=== PATIENT | male | born 1980 | race Two or more races ===

== ENCOUNTER 2023-09-29 17:30 | Emergency (ER) | payer OTHER, SELFPAY ==
[2023-09-29 17:37] VITALS: BP 160/88; PULSE 76; O2SAT 98
[2023-09-29 17:43] VITALS: BP 117/63; PULSE 84; RESP 16; TEMP 36.9; O2SAT 100; BMI 28.4
--- NOTE | 2023-09-29 18:22 | ED_ITS ---
HPI - Extremity Injury (Lower) General Chief Complaint: Extremity Injury, Lower Stated Complaint: L ankle injury, hyperextension Time Seen by Provider: 09/29/23 17:38 Source: patient, EMS and RN notes reviewed Mode of arrival: EMS Limitations: no limitations History of Present Illness HPI Narrative: Patient is a 43-year-old male presenting to the emergency department with complaint of sudden onset left posterior ankle pain. Patient was playing volleyball and while jumping, felt a popping sensation and when landed was unable to stand/bear weight on left leg. Reports pain to achillles at this time. Denies any numbness or tingling. Denies taking any [id number] pain medication prior to arrival. MD complaint: ankle injury Onset (ago): minute(s) Place: other Severity: severe Exacerbating factors: movement and palpation Context: jumping Associated symptoms: snap/pop sensation Other symptoms: none Treatments prior to arrival: cold therapy Related Data Allergies Allergy/AdvReac Type Severity Reaction Status Date / Time No Known Allergies Allergy Verified 09/29/23 18:15 Review of Systems Review of Systems: As per HPI. Yes all other systems are reviewed and are negative Constitutional: Constitutional: Reports as per HPI [facility] Social History Social History Advance Directives: No Advance Directives Information Provided: No Physical Exam Vital Signs: Vital Signs: Last Vital Signs Temp 98.5 F 09/29/23 17:43 Pulse 84 09/29/23 17:43 Resp 16 09/29/23 17:43 BP 117/63 09/29/23 17:43 Pulse Ox 100 09/29/23 17:43 O2 Del Method Room Air 09/29/23 17:43 BMI result Body Mass Index 28.4 Vital signs have been reviewed and appear to be correct. Blood pressure normal. Heart rate normal. Respiratory rate normal. Temperature normal. Oxygen saturation normal. Const: General: cooperative, healthy appearing and no acute distress Orientation/consciousness: oriented to person, oriented to place, oriented to time and patient oriented x3 Limitations: no limitations HEENT: Head: Yes normocephalic and Yes atraumatic Ears: external ears normal General nose exam: Normal external nose present Face and sinus: Yes face symmetric Mouth: oropharynx normal and moist mucous membranes Throat: Yes uvula midline Eyes: Pupils: Equal, round and reactive pupils present Neck: Neck: Yes normal visual inspection and Yes supple Resp: Effort & Inspection: normal respiratory effort and able to speak in complete sentences Auscultation: clear to auscultation bilaterally Cardio: Rate: regular rate Rhythm: regular rhythm Heart sounds: S1 normal heart sound present and S2 normal heart sound present GI: Palpation (GI): Soft to palpation and nontender Auscultation: normoactive bowel sounds : General: Yes no CVA tenderness Back/Spine/Pelvis: Back: no CVA tenderness Skin: General skin exam: elasticity normal and turgor normal Neuro: General: oriented to person, oriented to place, oriented to time, patient oriented x3, moves all extremities, no focal motor deficits and CN's II- XI intact bilaterally Cranial nerves: Yes Equal, round and reactive pupils present Cognition (Neuro): normal cognition Extrem: General: Yes full ROM, Yes no pedal edema and Yes no calf tenderness Right lower extremity: normal to inspection, full ROM and normal capillary refill Left lower extremity: ankle Details: tenderness Location: of the achilles tendon, swelling Details: posteriorly and achilles tendon exam abnormal Details: tenderness to palpation and Barnett Test abnormal; no ecchymosis and foot Details: vascular exam Details: dorsalis pedis pulse present and posterior tibial pulse present Psych: Mental Status: mental status grossly normal Affect: normal affect Thought process: Normal thought process present Medications Administered Discontinued Medications Generic Name Dose Route Start Last Admin Trade Name Bertha PRN Reason Stop Dose Admin Acetaminophen 975 mg 09/29/23 18:23 09/29/23 18:29 Acetaminophen 325 Mg Tablet PO 09/29/23 18:24 975 mg ONCE ONE Administration Ibuprofen 600 mg 09/29/23 18:23 09/29/23 18:29 Ibuprofen 600 Mg Tablet PO 09/29/23 18:24 600 mg ONCE ONE Administration Oxycodone HCl 5 mg 09/29/23 18:15 09/29/23 18:30 Oxycodone Hcl Immed Release 5 Mg Tablet PO 09/29/23 18:16 Not Given ONCE ONE Medical Decision Making Medical Decision Making [facility] Narrative: Patient is a 43-year-old male presenting to the emergency department with comp laint of sudden onset left posterior ankle pain. On exam patient is awake, A+Ox3, VS WNL, afebrile, normal neurological exam without focal deficits, physical exam findings as above. Given reported symptoms and physical exam findings, initial differential includes Achilles tendon tear, Achilles tendonitis, bursitis. Physical exam findings consistent with Achilles tendon tear. Patient medicated for pain, patient declined oxycodone, patient medicated with Tylenol and ibuprofen. Patient placed in walking boot and provided with crutches in crutch teaching. Will refer patient to Orthopedics for further management. Dr. Harrington notified that patient will be following up. Discussed with patient that he should be nonweightbearing on left leg until seen by orthopedics. Advised Tylenol and ibuprofen for discomfort, ice, elevation. Return precautions discussed with patient. Patient verbalized understanding of and agreement with plan. Differential Diagnosis Differential Diagnoses: The differential diagnosis associated with the presentation includes As per MDM. External Record Review External record reviewed: Inpatient record, Office record and Outpatient record Prescription Management I considered prescription management with: Pain Medication Discharge Plan Discharge Clinical Impression: Achilles tendon tear Qualifiers: Encounter type: initial encounter Laterality: left Qualified Code(s): S86.012A - Strain of left Achilles tendon, initial encounter Patient Disposition: Home, Self-Care Instructions: Crutch Instructions (ED), Achilles Tendon Rupture (ED), R.I.C.E. Treatment (ED) Additional Instructions: You have been evaluated in the emergency department today for left achilles pain. Your evaluation is consistent with an Achilles tendon tear. You were placed in a walking boot in the emergency department today. We have provided crutches for you to use as you should not bear any weight on your left foot until seen by orthopedics. Please rest, ice, and elevate your ankle, and resume normal activities as tolerated. We recommend you take 600mg ibuprofen every 6 hours or 650mg Tylenol every 6 hours as needed for pain. If needed you can alternate these medications as they take 1 medication every 3 hours. For instance at noon take ibuprofen, then at 3:00 p.m. take Tylenol, then at 6:00 p.m. take ibuprofen. You are being referred to Orthopedics for further management of this injury. Please call their office tomorrow to schedule an appointment. Please schedule an appointment for follow-up with your primary care provider this week as well. Return to the emergency department if you experience worsening pain, numbness, tingling, change of color in your foot, or any other concerning symptoms. Referrals: [facility] [Provider Group] Stand Alone Forms: Work/School Release
[2023-09-29] MEDS: Acetaminophen 325 MG TABLET 975 MG PO (18:29)
[2023-09-29] MEDS: Ibuprofen 600 MG TABLET PO (18:29)
[2023-09-29 18:52] VITALS: BP 148/81; PULSE 76; RESP 19; TEMP 36.8; O2SAT 98
== END 2023-09-29 19:07 | disposition home or self-care (01) ==
PROVIDERS: Emergency Provider Emergency Medicine
DX: S86.012A Strain of left Achilles tendon, initial encounter (principal); M79.605 Pain in left leg; Y93.68 Activity, volleyball (beach) (court); Y92.318 Other athletic court as the place of occurrence of the external cause; Y99.8 Other external cause status
CPT/HCPCS: 99283; 99284

== ENCOUNTER 2023-10-03 09:55 | Outpatient (AMB) | payer OTHER, SELFPAY ==
--- NOTE | 2023-10-03 10:00 | A.OFFVIS_ITS ---
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 Patient states he was playing volleyball and while jumping, felt a popping sensation, landed and was unable to stand/bear weight on left leg. Reports pain to achillles at this time. Denies any numbness or tingling. Seen in ED where he he was told this might be an achilles tendon tear. Patient was given a boot and crutches. Currently states he cont's to have pain, swelling and bruising. Denies nymbness or tingling. 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 He was seen at ED for his pain where he was placed in a boot and crutches were given. He currently states he has pain, swelling and bruising in his left foot. He denies any numbness or tingling. 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 [facility] Medical History (Updated 10/03/23 @ 11:25 by Chilango Gil PA-C) High blood pressure Surgical History (Updated 10/03/23 @ 11:24 by Chilango Gil PA-C) History of ankle surgery Social History (Updated 10/03/23 @ 10:12 by MARCE Tay) Current occupational status: employed Current occupation: active duty / rt hand Review of Systems Const All systems reviewed & are unremarkable except as noted in HPI and below Physical Exam Vital Signs: BMI result Body Mass Index 28.4 Const General: cooperative, healthy appearing, comfortable, no acute distress, well developed and alert Orientation/consciousness: patient oriented x3 HEENT Head: Yes normal to inspection, Yes normocephalic and Yes atraumatic Eyes General: appearance normal, both eyes and all related structures Neck Neck: Yes normal visual inspection and Yes no lymphadenopathy Resp Effort & Inspection: normal respiratory effort and able to speak in complete sentences Cardio Rate: regular rate Peripheral pulses: Peripheral pulses 2+ throughout GI Inspection: Yes normal to inspection Palpation (GI): Soft to palpation Skin General skin exam: no rashes or lesions noted Lesions: no lesions Rashes: no rashes Neuro General: patient oriented x3 Extrem Other: Left ankle: Normal to inspection, diffuse swelling throughout the ankle and up into the region of the Achilles. He does have tenderness with a palpable defect along the Achilles tendon with a positive Barnett?s sign. NVI. Psych Appearance: grossly normal Mental Status: mental status grossly normal Assessment & Plan Assessment & Plan (1) Rupture of left Achilles tendon: Code(s): S86.012A - Strain of left Achilles tendon, initial encounter Qualifiers: Encounter type: initial encounter Qualified Code(s): S86.012A - Strain of left Achilles tendon, initial encounter Plan I reviewed the case with Dr. Nicole and this is something that would require surgical intervention to repair. I explained the extent of the injury and option s to the patient which includes repair of the Achilles tendon. I did explain to her that this takes anywhere from 6-12 weeks to fully recover from as there needs to be a period of immobilization and then some potential physical therapy. I discussed with him the risks, benefits and alternatives to the procedure. Risks including, but not limited to infection, re-rupture of the tendon, stiffness. He does understand all this and would like to proceed with left Achilles tendon repair with Dr. Nicole. He will be booked accordingly. Medications: New ibuprofen 800 mg PO Q8H PRN 90 tabs 3RF pain 30 days S52.209D - Unspecified fracture of shaft of unspecified ulna, subsequent encounter for closed fracture with routine healing acetaminophen 650 mg (2 x 325 mg) PO Q4-6H PRN 240 tabs 0RF fever or pain 30 days Patient Instructions: Scribed for Chilango Gil PA-C, by Prabhu Mckeon medical records clerk, on 10/03/2023 at 9:30 AM JORGITO. Chilango Gutierrez PA-C, have personally reviewed and agree with the information entered by the scribe. Coding Level of Care Code New Pt Level 4 (42256) Diagnoses Rupture of left Achilles tendon, initial encounter S86.012A Encounter type: initial encounter
[2023-10-03 10:02] VITALS: BMI 28.4
== END 2023-10-03 10:56 | disposition home or self-care (01) ==
PROVIDERS: Visit Provider Physician Assistant
DX: S86.012A Strain of left Achilles tendon, initial encounter (principal)
CPT/HCPCS: 99204

== ENCOUNTER → 2023-10-03 09:55 | Outpatient (BNVA) | payer OTHER, SELFPAY | PROVIDERS: Visit Provider Physician Assistant | DX: S86.012A Strain of left Achilles tendon, initial encounter (principal) | CPT/HCPCS: 99202 ==

== ENCOUNTER 2023-10-05 10:31 | Day surgery (SDC) | payer OTHER, SELFPAY ==
--- NOTE | 2023-10-04 09:15 | HO.ANESPROP2 ---
Documented by User: Katrhyn Witt NP 10/04/23 09:15 HPI - Anesthesia Eval Consult details Narrative: 43yo M for Left Achilles Tendon Repair PMFSH Active Problems Active Problems: All Active Problems (Updated 10/03/23 @ 11:25 by Chilango Gil PA-C) Rupture of left Achilles tendon (Acute) Past Medical History Medical History Sleep apnea High blood pressure Surgical History Surgical History History of foot surgery History of ankle surgery Social History Social History Patient Tobacco Use Status: Never used Tobacco Use of substances other than those prescribed or required for medical reasons: No Are you DNR?: No Advance Directives: No Advance Directives Information Provided: Yes Current occupational status: employed Current occupation: active duty / rt hand Meds Allergies Allergy/AdvReac Type Severity Reaction Status Date / Time No Known Allergies Allergy Verified 10/03/23 10:03 Home Medications Medication Instructions Recorded Confirmed Last Taken Type amlodipine 5 mg tablet 5 mg PO DAILY 10/03/23 10/05/23 10/05/23 History lisinopril 2.5 mg tablet 2.5 mg PO DAILY 10/03/23 10/05/23 10/05/23 History Assessment and Plan Assessment Anesthesia Assessment: Chart Reviewed Documented by User: Eliana Briscoe MD 10/05/23 12:30 PMFSH Past Medical History Medical History Sleep apnea High blood pressure Family History Family history of problems with anesthesia: No Surgical History Surgical History History of foot surgery History of ankle surgery History of Problems with Anesthesia: No Social History Social History Patient Tobacco Use Status: Never used Tobacco Use of substances other than those prescribed or required for medical reasons: No Are you DNR?: No Advance Directives: No Advance Directives Information Provided: Yes Current occupational status: employed Current occupation: active duty / rt hand Meds Allergies Allergy/AdvReac Type Severity Reaction Status Date / Time No Known Allergies Allergy Verified 10/03/23 10:03 Home Medications Medication Instructions Recorded Confirmed Last Taken Type amlodipine 5 mg tablet 5 mg PO DAILY 10/03/23 10/05/23 10/05/23 History lisinopril 2.5 mg tablet 2.5 mg PO DAILY 10/03/23 10/05/23 10/05/23 History Exam Airway Mallampati Class: II TM Dist: >3cm Neck ROM: Full Heart: rrr Lungs: cta Assessment and Plan Assessment Anesthesia Assessment: Anesthesia Plan Discussed Final Anesthetic Review Family History of Problems with Anesthesia: No History of Problems with Anesthesia: No NPO: Yes ASA Class: III Final Preanesthetic Review: No Changes in Pt Med Stat, Meds/Allgs Chart Reviewed, Consent Obtained/Reviewed and Anes Risks/Benef Reviewed Patient Risk: Intermediate Procedure Risk: Intermediate Anesthetic Plan Anesthetic Plan: GA and Regional Block Disposition: Standard PACU
[2023-10-05 12:11] VITALS: BMI 26.0
[2023-10-05 12:23] VITALS: BP 142/95; PULSE 70; RESP 16; TEMP 36.8; O2SAT 99
[2023-10-05] MEDS: Lactated Ringers 1,000 ML 100 ML IVCONT (12:39)
--- NOTE | 2023-10-05 15:48 | PM.OP ---
Brief Operative Note Date of Service: 10/05/23 Pre-op diagnosis: Left achilles tendon rupture Post-op diagnosis: same Procedure: Left achilles tendon repair Implants: none Surgeon: Faustino Nicole MD Anesthesia: GETA and regional Was an Piano And Organ Refinisher used for this Procedure?: Yes Piano And Organ Refinisher: April Wilson Estimated blood loss (mL): 25 IV fluids (mL): 800 Pathology: none sent Condition: stable Disposition: PACU
[2023-10-05 15:54] VITALS: BP 151/77; PULSE 90; RESP 18; TEMP 36.6; O2SAT 100
[2023-10-05 15:59] VITALS: BP 143/79; PULSE 86; RESP 20; O2SAT 98
[2023-10-05 16:04] VITALS: BP 146/79; BP 148/72; PULSE 83; PULSE 96; RESP 20; O2SAT 96; O2SAT 98
[2023-10-05 16:19] VITALS: BP 145/88; PULSE 76; RESP 20; O2SAT 99
[2023-10-05 16:34] VITALS: BP 149/78; PULSE 76; RESP 20; TEMP 36.2; O2SAT 99
--- NOTE | 2023-10-10 08:38 | W.PM.OPN ---
Operative Note Operative Note Date of Service: 10/05/23 Narrative: Date of Service: 10/05/23 Pre-op diagnosis: Left achilles tendon rupture Post-op diagnosis: same Procedure: Left achilles tendon repair Implants: none Surgeon: Faustino Nicole MD Anesthesia: GETA and regional Was an Overlock Sewing Machine Operator used for this Procedure?: Yes Overlock Sewing Machine Operator: April Wilson Estimated blood loss (mL): 25 IV fluids (mL): 800 Pathology: none sent Condition: stable Disposition: PACU Patient was brought to the operating room and placed prone on the surgical table. He was prepped and draped in standard sterile fashion and a time out was called to identify proper site, proper procedure and IV antibiotics per weight were administered. I began by making a 2 cm incision over the distal Achilles tendon. Once through skin was immediately obvious that he had a full-thickness tear of his Achilles tendon. The distal end contained most of the tendon and a portion had occurrred at the tendon-muscle interface. I extended the incision 1.5 cm proximally to better visualize the torn portions of the tendon. There was a portion of the proximal tendon that I was able to grab with a Shivani clamp. I debrided the tissue and then, using a #2 FiberWire and a Krackow stitch in both the distal and proximal fragment reapproximated to tendon fragments with the foot and hyper plantar flexion. The repair was stable as I took the ankle through full ROM. The proximal portion of the tear did occur through the muscle-tendon interface and so the repair was tenous at the proximal aspect. Absorbalbe suture and skin glue were used and a well-padded posterior splint was applied with the plan plantar flexion. Patient was then extubated brought to recovery room stable condition. There were no known complications.
== END 2023-10-05 17:15 | disposition home or self-care (01) ==
LOC: HO.SSS 10:33
PROVIDERS: Visit Provider Orthopaedic Surgery
PROC: (CPT 27650; principal; 2023-10-05 13:40)
DX: S86.012A Strain of left Achilles tendon, initial encounter (principal); M25.572 Pain in left ankle and joints of left foot; X58.XXXA Exposure to other specified factors, initial encounter; Y93.68 Activity, volleyball (beach) (court); Y92.9 Unspecified place or not applicable; Y99.8 Other external cause status; I10 Essential (primary) hypertension; G47.33 Obstructive sleep apnea (adult) (pediatric); Z79.899 Other long term (current) drug therapy; Z98.890 Other specified postprocedural states
CPT/HCPCS: 27650; J0131; J0665; J0690; J2250; J2405; J2704; J3010

== ENCOUNTER → 2023-10-05 10:31 | Outpatient (BNV) | payer OTHER, SELFPAY | PROVIDERS: Visit Provider Orthopaedic Surgery | DX: S86.012A Strain of left Achilles tendon, initial encounter (principal) | CPT/HCPCS: 27650 ==

== ENCOUNTER 2023-10-13 10:11 | Outpatient (AMB) | payer OTHER, SELFPAY ==
--- NOTE | 2023-10-13 10:51 | A.OFFVIS_ITS ---
Intake Intake Visit Reasons: PO LT achilles tendone repair 10/05/23 NE Intake Note: Roberto is a 43 year old male who presents today for a post op appointment s/p LT achilles tendon repair 10/05/23 NE. Patient reports having some discomfort. Denies numbness and tingling. Allergies hydrocodone Adverse Reaction (Verified 10/05/23 12:43) Agitated oxycodone Adverse Reaction (Verified 10/05/23 12:43) Agitated HPI PO LT achilles tendone repair 10/05/23 NE HPI Details 43-year-old male who presents in the off ice today 8 days status post left achilles tendon repair, which was performed on 10/05/[address] Nicole. The patient reports having some discomfort. He denies numbness or tingling. The patient presented to the office today with a knee scooter and it started to tip over causing him to put weight on the left lower extremity where he reports he had significant increase in pain. REPLACED BY [facility] Medical History Sleep apnea High blood pressure Surgical History History of foot surgery History of ankle surgery Social History Patient Tobacco Use Status: Never used Tobacco Current occupational status: employed Current occupation: active duty / rt hand Review of Systems Const All systems reviewed & are unremarkable except as noted in HPI and below Physical Exam Const General: cooperative, healthy appearing and no acute distress Resp Effort & Inspection: normal respiratory effort and able to speak in complete sentences Cardio Rate: regular rate Peripheral pulses: Peripheral pulses 2+ throughout GI Palpation (GI): Soft to palpation Skin Lesions: no lesions Rashes: no rashes Extrem Other: Left achilles: Normal to inspection. NO ecchymosis, erythema, or edema. No signs of infection. Sensation intact. Pedal pulse intact. Office Procedures Casting/Splints 60086-[id number] Leg Cast Application Procedure code (CPT) selection complete Assessment & Plan Assessment & Plan (1) Rupture of left Achilles tendon: Code(s): S86.012A - Strain of left Achilles tendon, initial encounter Qualifiers: Encounter type: initial encounter Qualified Code(s): S86.012A - Strain of left Achilles tendon, initial encounter Plan Mr. Lawson is a 43-year-old male who presents in the office today 8 days status post left achilles tendon repair, which was performed on 10/05/[address] Nicole. The patient reports having some discomfort. He denies numbness or tingling. The patient presented to the office today with a knee scooter and it started to tip over causing him to put weight on the left lower extremity where he reports he had significant increase in pain. I reviewed the case with Dr. Nicole and a collaborative treatment plan was made. He was placed in a short leg cast, custom made, in the position of neutral while in the office today. He will remain non-weight bearing. Follow up will be in 4 weeks, or sooner if needed. Patient Instructions: Scribed by Rody Aguero medical biller coder, for April Wilson PA-C on 10/13/2023 at 10:12 am, EST. Coding Level of Care Code Global (98323) Diagnoses Rupture of left Achilles tendon, initial encounter S86.012A Encounter type: initial encounter CPT Codes Casting - CPT: 57468-Jufbb Leg Cast Application ([id number])
== END 2023-10-13 11:50 | disposition home or self-care (01) ==
PROVIDERS: Visit Provider Physician Assistant
DX: S86.012A Strain of left Achilles tendon, initial encounter (principal)
CPT/HCPCS: 29405; 99024

== ENCOUNTER → 2023-10-13 10:11 | Outpatient (BNVA) | payer OTHER, SELFPAY | PROVIDERS: Visit Provider Physician Assistant | DX: S86.012D Strain of left Achilles tendon, subsequent encounter (principal) | CPT/HCPCS: 29405; 99212 ==

== ENCOUNTER 2023-11-08 09:22 | Outpatient (AMB) | payer OTHER, SELFPAY ==
--- NOTE | 2023-11-08 09:26 | A.OFFVIS_ITS ---
Intake Intake Visit Reasons: PO LT achilles tendone repair 10/05/23 NE Intake Note: Roberto is a 43 year old male who presents today for a post op appointment s/p LT achilles tendon repair 10/05/23 NE. Patient reports he is not having no pain. Currently he is doing well. Allergies hydrocodone Adverse Reaction (Verified 11/08/23 09:26) Agitated oxycodone Adverse Reaction (Verified 11/08/23 09:26) Agitated HPI PO LT achilles tendone repair 10/05/23 NE HPI Details 43-year-old male who presents in the off ice today 5 weeks status post left achilles tendon repair, which was performed on 10/05/[address] Nicole. I last saw the patient in the office on 10/13/2023 when he was placed in a short leg cast and was instructed to remain non-weight bearing. The patient reports he is having no pain and states he is doing well. [facility] Medical History Sleep apnea High blood pressure Surgical History History of foot surgery History of ankle surgery Social History Patient Tobacco Use Status: Never used Tobacco Current occupational status: employed Current occupation: active duty / rt hand Review of Systems Const All systems reviewed & are unremarkable except as noted in HPI and below Physical Exam Const General: cooperative, healthy appearing and no acute distress Resp Effort & Inspection: normal respiratory effort and able to speak in complete sentences Cardio Rate: regular rate Peripheral pulses: Peripheral pulses 2+ throughout GI Palpation (GI): Soft to palpation Skin Lesions: no lesions Rashes: no rashes Extrem Other: Left achilles: Incision site is clean, dry, and intact. Steri-stripes remaining. No surrounding erythema or drainage. No signs of infection. Negative Barnett?s test. Sensation intact. Pedal pulse intact. Assessment & Plan Assessment & Plan (1) S/P Achilles tendon repair: Comment: Left achilles tendon repair, which was performed on 10/05/2023 NE Code(s): Z98.890 - Other specified postprocedural states Plan Mr. Lawson is a 43-year-old male who presents in the office today 5 weeks status post left achilles tendon repair, which was performed on 10/05/[address] Nicole. I last saw the patient in the office on 10/13/2023 when he was placed in a short leg cast and was instructed to remain non-weight bearing. The patient reports he is having no pain and states he is doing well. The patient lives in [place] and would like to attend a physical therapy office closer to home. He was given a paper copy of this order today while in the office. He was instructed he needs to attend as soon as possible. He report that they there is a location that was close to home that could accommodate him next week. He was placed in a tall walking boot with a heel lift. He may begin to partially weight bear in the boot with crutches. His goal will be to work with physical therapy and to remove on heel wedge each week. Follow up will be in 5 weeks, or sooner if needed. Orders: Orders PT Evaluation and Treatment Today S86.012A - Strain of left Achilles tendon, initial encounter Patient Instructions: Scribed by Rody Aguero health care / medical job titles, for April Wilson PA-C on 11/08/2023 at 9:28 am, EST. Coding Level of Care Code Global (33720) Diagnoses S/P Achilles tendon repair Z98.890
== END 2023-11-08 10:43 | disposition home or self-care (01) ==
PROVIDERS: Visit Provider Physician Assistant
DX: Z98.890 Other specified postprocedural states (principal)
CPT/HCPCS: 99024

== ENCOUNTER → 2023-11-08 09:22 | Outpatient (BNVA) | payer OTHER, SELFPAY | PROVIDERS: Visit Provider Physician Assistant | DX: Z98.890 Other specified postprocedural states (principal) | CPT/HCPCS: 99212 ==

== ENCOUNTER 2023-12-20 09:00 | Outpatient (AMB) | payer OTHER, SELFPAY ==
--- NOTE | 2023-12-20 09:27 | A.OFFVIS_ITS ---
Intake Intake Visit Reasons: OV-LT achilles tendone repair 10/05/23 NE Intake Note: Roberto is a 43 year old male who presents today for a post op appointment s/p LT achilles tendon repair 10/05/23 NE. Patient reports he is doing well, however he notices some swelling when he is sitting for a long time. He states after going to PT he is showing improvements. Allergies hydrocodone Adverse Reaction (Verified 12/20/23 09:31) Agitated oxycodone Adverse Reaction (Verified 12/20/23 09:31) Agitated HPI OV-LT achilles tendone repair 10/05/23 NE HPI Details 43-year-old male who presents in the off ice today 11 weeks status post left achilles tendon repair, which was performed on 10/05/[address] Nicole. I last saw the patient in the office on 11/08/2023 when he was given a paper copy for PT in [place]. He was placed in a tall walking boot with a heel lift to begin partial weight bearing with the use of crutches. While in the office today the patient reports he is doing well. Reports some edema when he is sitting for long periods of time. He reports improvement after attending PT. He has weaned out of the boot and into a shoe with a 1/2in heel lift. [facility] Medical History Sleep apnea High blood pressure Surgical History History of foot surgery History of ankle surgery Social History Patient Tobacco Use Status: Never used Tobacco Current occupational status: employed Current occupation: active duty / rt hand Review of Systems Const All systems reviewed & are unremarkable except as noted in HPI and below Physical Exam Const General: cooperative, healthy appearing and no acute distress Resp Effort & Inspection: normal respiratory effort and able to speak in complete sentences Cardio Rate: regular rate Peripheral pulses: Peripheral pulses 2+ throughout GI Palpation (GI): Soft to palpation Skin Lesions: no lesions Rashes: no rashes Extrem Other: Left achilles: Incision site is clean, dry, and intact. No surrounding erythema or drainage. No signs of infection. Full ROM with dorsi/plantar flexion, pronation and supination. Negative Barnett?s test. Sensation intact. Pedal pulse intact. Assessment & Plan Assessment & Plan (1) S/P Achilles tendon repair: Comment: Left achilles tendon repair, which was performed on 10/05/2023 NE Code(s): Z98.890 - Other specified postprocedural states (2) Rupture of left Achilles tendon: Code(s): S86.012A - Strain of left Achilles tendon, initial encounter Qualifiers: Encounter type: initial encounter Qualified Code(s): S86.012A - Strain of left Achilles tendon, initial encounter Plan Mr. Lawson is a 43-year-old male who presents in the office today 11 weeks status post left achilles tendon repair, which was performed on 10/05/[address] Nicole. I last saw the patient in the office on 11/08/2023 when he was given a paper copy for PT in [place]. He was placed in a tall walking boot with a heel lift to begin partial weight bearing with the use of crutches. While in the office today the patient reports he is doing well. Reports some edema when he is sitting for long periods of time. He reports improvement after attending PT. Patient confirms since his last visit he has been working with PT and has been weaned out of the boot into a normal walking shoe with half inch heel lift. He may remove the heel lift at this time. He was encouraged to work with PT. He does have a small area at the distal end of the incision that may be a small amount of Sub-Q suture poking through. I instructed the patient to keep an eye on this area and should it worsen than we can discuss over the phone if PT could snip the remaining suture at the level of the skin. It is a pinpoint area at this point and I do not want to open the area trying to extract it. This was recommended due to the patient living 3 hours away from the office. At this time, it does not look irritated or inflamed. Follow up will be in 6 weeks, or sooner if needed. Patient Instructions: Scribed by Rody Aguero auditor medical claims, for April Wilson PA-C on 12/20/2023 at 9:03 am, EST. Coding Level of Care Code Global (43224) Diagnoses S/P Achilles tendon repair Z98.890 Rupture of left Achilles tendon, initial encounter S86.012A Encounter type: initial encounter
== END 2023-12-20 10:02 | disposition home or self-care (01) ==
PROVIDERS: Visit Provider Physician Assistant
DX: Z98.890 Other specified postprocedural states (principal); S86.012A Strain of left Achilles tendon, initial encounter
CPT/HCPCS: 99024

== ENCOUNTER → 2023-12-20 09:00 | Outpatient (BNVA) | payer OTHER, SELFPAY | PROVIDERS: Visit Provider Physician Assistant | DX: S86.012D Strain of left Achilles tendon, subsequent encounter (principal); Z98.890 Other specified postprocedural states | CPT/HCPCS: 99212 ==

== ENCOUNTER 2024-01-26 13:31 | Outpatient (AMB) | payer OTHER, SELFPAY ==
--- NOTE | 2024-01-26 13:38 | A.OFFVIS_ITS ---
Intake Visit Reasons: OV - Left Achilles Tendon Repair 10/05/23 Intake Note: Roberto is a 43 year old male who presents today for a follow up s/p LT achilles tendon repair 10/05/23 NE. Patient reports he is feeling better but he feels like it still is causing him pain. He states that first thing in the morning he feels stiff and working with PT. Patient expresses a complaint of hypersensativity over the incision site. Allergies hydrocodone Adverse Reaction (Verified 12/20/23 09:31) Agitated oxycodone Adverse Reaction (Verified 12/20/23 09:31) Agitated HPI HPI OV - Left Achilles Tendon Repair 10/05/23: Details: 44-year-old male who presents in the office today 4 months status post left Achilles tendon repair, which was performed on 10/05/[address] Nicole. I last saw the patient in the office on 12/20/2023 when he was instructed to remove the heel lift and encouraged to work with PT. While in the office today the patient reports he is feeling better. He claims to have stiffness in the morning. He reports hypersensitivity over the incision site. Confirms participation in physical therapy. [facility] Medical History Sleep apnea High blood pressure Surgical History History of foot surgery History of ankle surgery Social History Patient Tobacco Use Status: Never used Tobacco Current occupational status: employed Current occupation: active duty / rt hand Review of Systems Const All systems reviewed & are unremarkable except as noted in HPI and below Physical Exam Const General: cooperative, healthy appearing and no acute distress Resp Effort & Inspection: normal respiratory effort and able to speak in complete sentences Cardio Rate: regular rate Peripheral pulses: Peripheral pulses 2+ throughout GI Palpation (GI): Soft to palpation Skin Lesions: no lesions Rashes: no rashes Extrem Other: Left achilles: Incision site is clean, dry, and intact. No surrounding erythema or drainage. No signs of infection. Full ROM with dorsi/plantar flexion, pronation and supination. Negative Barnett?s test. Sensation intact. Pedal pulse intact. Assessment & Plan Assessment & Plan (1) S/P Achilles tendon repair: Comment: Left achilles tendon repair, which was performed on 10/05/2023 NE Code(s): Z98.890 - Other specified postprocedural states Category: Surgical (2) Rupture of left Achilles tendon: Code(s): S86.012A - Strain of left Achilles tendon, initial encounter Category: Medical Qualifiers: Encounter type: initial encounter Qualified Code(s): S86.012A - Strain of left Achilles tendon, initial encounter Plan Mr. Lawson is a 44-year-old male who presents in the office today 4 months status post left Achilles tendon repair, which was performed on 10/05/[address] Nicole. I last saw the patient in the office on 12/20/2023 when he was instructed to remove the heel lift and encouraged to work with PT. While in the office today the patient reports he is feeling better. He claims to have stiffness in the morning. He reports hypersensitivity over the incision site. Confirms participation in physical therapy. Patient will continue to work with physical therapy. At this time, he is still on light duty restrictions, as he works for the [employer]. He is still having difficulty climbing up and down stairs. Follow up will be in 8 weeks for a re- evaluation of his work status, or sooner if needed. Patient Instructions: Scribed by Rody Aguero medical services coordinator, for April Wilson PA-C on 01/26/2024 at 1:34 pm, EST. Coding Level of Care Code Est Pt Level 3 (80555) Diagnoses S/P Achilles tendon repair Z98.890 Rupture of left Achilles tendon, initial encounter S86.012A Encounter type: initial encounter
== END 2024-01-26 13:55 | disposition home or self-care (01) ==
LOC: HO.HOS 13:31
PROVIDERS: Visit Provider Physician Assistant
DX: S86.012A Strain of left Achilles tendon, initial encounter (principal)
CPT/HCPCS: 99213

== ENCOUNTER → 2024-01-26 13:31 | Outpatient (BNVA) | payer OTHER, SELFPAY | PROVIDERS: Visit Provider Physician Assistant | DX: S86.012A Strain of left Achilles tendon, initial encounter (principal); X58.XXXA Exposure to other specified factors, initial encounter; Y93.9 Activity, unspecified; Y92.9 Unspecified place or not applicable; Y99.9 Unspecified external cause status; Z98.890 Other specified postprocedural states | CPT/HCPCS: 99212 ==

== ENCOUNTER 2024-04-10 13:11 | Outpatient (AMB) | payer OTHER, SELFPAY ==
--- NOTE | 2024-04-10 13:24 | MHC.OFFVIS ---
Intake Visit Reasons: OV - Left Achilles Tendon Repair 10/05/23 Intake Note: Roberto is a 43 year old male who presents today for a follow up s/p LT achilles tendon repair 10/05/23 NE. Patient reports he is doing a little better. He states that he gets a little stiff in the morning. Allergies hydrocodone Adverse Reaction (Verified 12/20/23 09:31) Agitated oxycodone Adverse Reaction (Verified 12/20/23 09:31) Agitated HPI HPI OV - Left Achilles Tendon Repair 10/05/23: Details: 44-year-old male who presents in the office today 6?months status post left Achilles tendon repair, which was performed on 10/05/[address] Nicole. I last saw the patient in the office on 01/26/24 when he was to continue to work with physical therapy. He was also to remain out of work until his follow-up due to difficulty ambulating up and down stairs. ? ? While in the office today, the patient reports he is doing a little better. He does reports some stiffness in the morning. ? ? Patient is currently employed by the [employer]. ? [facility] Medical History Sleep apnea High blood pressure Surgical History History of foot surgery History of ankle surgery Social History Patient Tobacco Use Status: Never used Tobacco Current occupational status: employed Current occupation: active duty / rt hand Review of Systems Const All systems reviewed & are unremarkable except as noted in HPI and below Physical Exam Const General: cooperative, healthy appearing and no acute distress Resp Effort & Inspection: normal respiratory effort and able to speak in complete sentences Cardio Rate: regular rate Peripheral pulses: Peripheral pulses 2+ throughout GI Palpation (GI): Soft to palpation Skin Lesions: no lesions Rashes: no rashes Extrem Other: Left achilles: Incision site is completely healed. No surrounding erythema or drainage. No signs of infection. Full ROM with dorsi/plantar flexion, pronation and supination. Negative Barnett?s test. Sensation intact. Pedal pulse intact. Assessment & Plan Assessment & Plan (1) S/P Achilles tendon repair: Comment: Left achilles tendon repair, which was performed on 10/05/2023 NE Code(s): Z98.890 - Other specified postprocedural states Category: Surgical (2) Rupture of left Achilles tendon: Code(s): S86.012A - Strain of left Achilles tendon, initial encounter Category: Medical Qualifiers: Encounter type: initial encounter Qualified Code(s): S86.012A - Strain of left Achilles tendon, initial encounter Plan Mr. Lawson is a 44-year-old male who presents in the office today 6?months status post left Achilles tendon repair, which was performed on 10/05/[address] Nicole. I last saw the patient in the office on 01/26/24 when he was to continue to work with physical therapy. He was also to remain out of work until his follow-up due to difficulty ambulating up and down stairs. ? ? While in the office today, the patient reports he is doing a little better. He does reports some stiffness in the morning. ? ? Patient is currently employed by the [employer].? ? The patient will continue to work with physical therapy until all sessions are completed. He will return to normal activities as tolerated. Follow-up will be PRN, or sooner if needed. ? Patient Instructions: Scribed by Rody Aguero medical and health services manager, for April Wilson PA-C on 04/10/2024 at 1:14 pm, EST.? Coding Level of Care Code Est Pt Level 3 (10021) Diagnoses S/P Achilles tendon repair Z98.890 Rupture of left Achilles tendon, initial encounter S86.012A Encounter type: initial encounter
== END 2024-04-10 13:44 | disposition home or self-care (01) ==
PROVIDERS: Visit Provider Physician Assistant
DX: S86.012D Strain of left Achilles tendon, subsequent encounter (principal)
CPT/HCPCS: 99213

== ENCOUNTER → 2024-04-10 13:11 | Outpatient (BNVA) | payer OTHER, SELFPAY | PROVIDERS: Visit Provider Physician Assistant | DX: S86.012D Strain of left Achilles tendon, subsequent encounter (principal); X58.XXXD Exposure to other specified factors, subsequent encounter; Z98.890 Other specified postprocedural states | CPT/HCPCS: 99212 ==